=== PATIENT | male | born 1965 | race Caucasian/White ===

== ENCOUNTER 2018-03-02 22:33 | Emergency (ER) | payer BC ==
[~2018-03-02] VITALS: Ht 177.8 cm; Wt 83.7 kg
[2018-03-02 22:38] VITALS: BP 162/133
[2018-03-02] MEDS ORDERED: ONDANSETRON 2MG/ML, 2ML IVPush ONE (23:00)
[2018-03-02] MEDS ORDERED: SODIUM CHLORIDE FLUSH 10ML SYR IVF ONE (23:00)
[2018-03-02] MEDS ORDERED: SODIUM CHLORIDE 0.9% 1,000ML IVBOLUS ONE (23:00)
[2018-03-02] MEDS ORDERED: MORPHINE SULFATE 4 MG/ML, 1ML ONE (23:07)
[2018-03-02] MEDS ORDERED: ONDANSETRON ODT 8 MG ONE (23:07)
[2018-03-02] MEDS: MORPHINE SULFATE 4 MG/ML, 1ML IVPush PRN (23:11)
[2018-03-02] MEDS ORDERED: ONDANSETRON ODT 8 MG PO ONE (23:30)
[2018-03-02] MEDS ORDERED: LISI-167 PO (23:37)
[2018-03-03] MEDS ORDERED: PROPOFOL 10 MG/ML, 20ML ONE (00:03)
[2018-03-03] MEDS ORDERED: MORPHINE SULFATE 4 MG/ML, 1ML ONE (00:24)
[2018-03-03] MEDS: MORPHINE SULFATE 4 MG/ML, 1ML IVPush PRN (00:25)
== END 2018-03-03 01:35 | disposition home or self-care (01) ==
LOC: ED 23:58
DX: T18.128A Food in esophagus causing other injury, initial encounter (principal); X58.XXXA Exposure to other specified factors, initial encounter; Y93.89 Activity, other specified; Y92.89 Other specified places as the place of occurrence of the external cause; Y99.8 Other external cause status
CPT/HCPCS: 43247; 99152; 99153; 99285; J7030; Q0162